=== PATIENT | female | born 1960 | race Caucasian/White ===

== ENCOUNTER 2018-01-09 01:22 | Emergency (ER) | payer SELFPAY ==
[~2018-01-09] VITALS: Ht 157.5 cm; Wt 68.0 kg
[~2018-01-09 01:22] MED LIST: Albuterol inhaler; IBUP-2030 PO; LEVO500T2 PO
[2018-01-09] MEDS ORDERED: IPRATROPIUM BROMIDE (0.02%) 0.5MG/2.5ML NEB HHN STA (02:01)
[2018-01-09] MEDS ORDERED: ALBUTEROL (0.083%) 2.5MG/3ML NEB HHN STA (02:01)
[2018-01-09] MEDS ORDERED: METHYLPREDNISOLONE SOD SUCC 125 MG/2 ML VIAL IV STA (02:01)
[2018-01-09 05:14] VITALS: BP 158/93
== END 2018-01-09 05:43 | disposition home or self-care (01) ==
LOC: ER 01:22
DX: J45.901 Unspecified asthma with (acute) exacerbation (principal); I10 Essential (primary) hypertension; E11.9 Type 2 diabetes mellitus without complications
CPT/HCPCS: 71045; 96374; 99284; J2930

== ENCOUNTER 2018-01-09 05:27 | Emergency (ER) | payer SELFPAY ==
[~2018-01-09] VITALS: Ht 154.9 cm; Wt 82.0 kg
[2018-01-09] MEDS ORDERED: KETOROLAC 60MG/2ML VIAL IM ONE (07:15)
[2018-01-09] MEDS ORDERED: CLONIDINE 0.2MG TABLET PO ONE (07:15)
[2018-01-09] MEDS ORDERED: IPRATROPIUM/ALBUTEROL 0.5-3(2.5)MG/3ML NEB HHN ONE (07:15)
[2018-01-09 08:13] LABS: CHLORIDE 105 mEq/L (98-107); HEMATOCRIT. 39.2 % (36.0-48.0); HEMOGLOBIN. 13.3 g/dL (12.0-16.0); MEAN CORPUSCULAR HEMOGLOBIN 29.8 pg (28.0-32.0); MEAN PLATELET VOLUME 9.8 fl (7.4-10.4); PLATELET 238 x1000/uL (130-400); RED BLOOD CELL COUNT 4.45 mill/uL (4.2-5.4); RED CELL DISTRIBUTION WIDTH 13.9 % (11.6-14.6)
[2018-01-09 09:20] LABS: PLATELET ESTIMATE NORMAL
[2018-01-09 12:15] VITALS: BP 101/63
== END 2018-01-09 13:27 | disposition home or self-care (01) ==
LOC: ER 05:51
DX: J45.901 Unspecified asthma with (acute) exacerbation (principal); R07.81 Pleurodynia; E78.00 Pure hypercholesterolemia, unspecified; I10 Essential (primary) hypertension; E11.9 Type 2 diabetes mellitus without complications
CPT/HCPCS: 36415; 80053; 84484; 85025; 93005; 96372; 99285; J1885; Z7610

== ENCOUNTER 2019-08-28 08:47 | Inpatient (IN) | payer OTHER, MEDICAID ==
[~2019-08-28] VITALS: Ht 154.9 cm; Wt 86.2 kg
[2019-08-28] MEDS ORDERED: SODIUM CHLORIDE 0.9% 1,000 ML IV ONE (09:12)
[2019-08-28] MEDS ORDERED: NITROGLYCERIN 0.4MG TABLET SL SL PRN (09:15)
[2019-08-28] MEDS ORDERED: ASPIRIN 81MG TABLET PO ONE (09:15)
[2019-08-28 09:45] LABS: BASOPHILS % 0.8 % (0.0-2.0); EOSINOPHILS % 2.6 % (0.0-5.0); HEMATOCRIT. 38.6 % (36.0-48.0); LYMPHOCYTES % 25.5 % (20.0-50.0); MEAN CORPUSCULAR HEMOGLOBIN 29.4 pg (28.0-32.0); MEAN CORPUSCULAR VOLUME 87.3 fL (81.0-99.0); MEAN PLATELET VOLUME 9.1 fl (7.4-10.4); MONOCYTES % 9.9 % (2.0-8.0); NEUTROPHILS % 61.2 % (40.0-76.0); PLATELET 274 x1000/uL (130-400); RED BLOOD CELL COUNT 4.42 mill/uL (4.2-5.4)
[2019-08-28 09:46] LABS: CHLORIDE 107 mEq/L (98-107)
[2019-08-28 12:00] VITALS: BP 152/75
[2019-08-28] MEDS ORDERED: AMLO2.5T45 PO (12:00)
[2019-08-28] MEDS ORDERED: GABA-529 PO (12:00)
[2019-08-28] MEDS ORDERED: SERT20OR6 PO (12:00)
[2019-08-28] MEDS ORDERED: METF-414 PO (12:00)
[2019-08-28] MEDS ORDERED: ASPI-1393 PO (12:00)
[2019-08-28] MEDS ORDERED: MONT4TAB11 MT (12:00)
[2019-08-28] MEDS ORDERED: DIPHENHYDRAMINE 50MG/ML VIAL IV PRN (14:15)
[2019-08-28] MEDS ORDERED: MAGNESIUM/ALUMINUM HYDROXIDE/SIMETHICONE 30ML UDC PO PRN (14:15)
[2019-08-28] MEDS ORDERED: CLONIDINE 0.1MG TABLET PO PRN (14:15)
[2019-08-28] MEDS ORDERED: ONDANSETRON HCL 4MG/2ML INJ IV PRN (14:15)
[2019-08-28] MEDS ORDERED: GUAIFENESIN 200MG/10ML SUGAR FREE UDC PO PRN (14:15)
[2019-08-28] MEDS ORDERED: HYDRALAZINE 20MG/ML VIAL IV PRN (14:15)
[2019-08-28] MEDS ORDERED: DEXTROSE 50% WATER 50ML SYRINGE IV PRN (14:15)
[2019-08-28] MEDS ORDERED: MORPHINE SULFATE 2 MG/ML CPJ (NOT FOR IM USE) IV PRN (14:15)
[2019-08-28] MEDS ORDERED: IPRATROPIUM/ALBUTEROL 0.5-3(2.5)MG/3ML NEB HHN PRN (14:15)
[2019-08-28] MEDS ORDERED: ACETAMINOPHEN 325MG TABLET PO PRN (14:15)
[2019-08-28] MEDS ORDERED: NA PHOS,M-B/NA PHOS,DI-BA ENEMA 118ML PR PRN (14:15)
[2019-08-28] MEDS ORDERED: LORAZEPAM 2MG/ML CPJ IV PRN (14:15)
[2019-08-28] MEDS ORDERED: DOCUSATE SODIUM 100MG CAPSULE PO PRN (14:15)
[2019-08-28 16:12] VITALS: BP 143/73
[2019-08-28] MEDS: ENOXAPARIN 40MG/0.4ML SYR SUBCUT SCH (17:40)
[2019-08-28] MEDS: BLOOD SUGAR DIAGNOSTIC STRIP TEST SCH ×2 (17:40→20:28)
[2019-08-28] MEDS: INSULIN LISPRO 100 UNITS/ML SUBCUT SCH ×2 (17:41→20:48)
[2019-08-28] MEDS: HYDROCODONE/ACETAMINOPHEN 10/325MG TABLET PO PRN (18:29)
[2019-08-28] MEDS ORDERED: MIRT15TA6 MT (19:31)
[2019-08-28] MEDS ORDERED: ATOR10TA69 MT (19:31)
[2019-08-28 20:00] VITALS: BP 128/67
[2019-08-28] MEDS: SODIUM CHLORIDE 0.9% INJ 3ML FLUSH IVF SCH (22:17)
[2019-08-29] VITALS: BP 133/65
[2019-08-29 00:30] LABS: CREATINE KINASE 62 IU/L (26-192)
[2019-08-29 00:32] LABS: CREATINE KINASE MB FRACTION < 1.0 ng/mL (0.5-3.6)
[2019-08-29 04:00] VITALS: BP 152/81
[2019-08-29] MEDS: BLOOD SUGAR DIAGNOSTIC STRIP TEST SCH ×4 (05:45→20:48)
[2019-08-29] MEDS: SODIUM CHLORIDE 0.9% INJ 3ML FLUSH IVF SCH ×3 (05:47→21:15)
[2019-08-29] MEDS: INSULIN LISPRO 100 UNITS/ML SUBCUT SCH ×4 (05:47→21:00)
[2019-08-29] MEDS: HYDROCODONE/ACETAMINOPHEN 10/325MG TABLET PO PRN ×2 (05:47→11:14)
[2019-08-29 06:40] LABS: CHLORIDE 110 mEq/L (98-107)
[2019-08-29 06:42] LABS: BASOPHILS % 0.9 % (0.0-2.0); EOSINOPHILS % 3.5 % (0.0-5.0); HEMATOCRIT. 36.8 % (36.0-48.0); HEMOGLOBIN. 12.2 g/dL (12.0-16.0); LYMPHOCYTES % 40.4 % (20.0-50.0); MEAN CORPUSCULAR VOLUME 87.8 fL (81.0-99.0); MONOCYTES % 11.7 % (2.0-8.0); NEUTROPHILS % 43.5 % (40.0-76.0); PLATELET 267 x1000/uL (130-400)
[2019-08-29 06:53] LABS: CREATINE KINASE MB FRACTION < 1.0 ng/mL (0.5-3.6); HDL CHOLESTEROL 57 mg/dL (40-59)
[2019-08-29 06:54] LABS: T4 FREE 0.88 ng/dL (0.76-1.46)
[2019-08-29 06:55] LABS: CREATINE KINASE 55 IU/L (26-192); LDL CHOLESTEROL 111 mg/dL (5-100)
[2019-08-29 08:00] VITALS: BP 126/67
[2019-08-29] MEDS ORDERED: REGADENOSON 0.4 MG/5 ML IV NR (10:45)
[2019-08-29 12:00] VITALS: BP 124/62
[2019-08-29] MEDS ORDERED: IOHEXOL-350 100 ML BOTTLE ONE (15:28)
[2019-08-29 16:00] VITALS: BP 132/67
[2019-08-29 16:19] LABS: CREATINE KINASE 57 IU/L (26-192); CREATINE KINASE MB FRACTION < 1.0 ng/mL (0.5-3.6)
[2019-08-29] MEDS: ENOXAPARIN 40MG/0.4ML SYR SUBCUT SCH (18:14)
[2019-08-29 20:00] VITALS: BP 116/59
[2019-08-30] VITALS: BP 120/65
[2019-08-30] MEDS: HYDROCODONE/ACETAMINOPHEN 10/325MG TABLET PO PRN (02:33)
[2019-08-30 04:00] VITALS: BP 131/67
[2019-08-30] MEDS: BLOOD SUGAR DIAGNOSTIC STRIP TEST SCH (06:01)
[2019-08-30] MEDS: SODIUM CHLORIDE 0.9% INJ 3ML FLUSH IVF SCH (06:18)
[2019-08-30] MEDS: INSULIN LISPRO 100 UNITS/ML SUBCUT SCH (06:19)
[2019-08-30 07:45] LABS: BASOPHILS % 0.9 % (0.0-2.0); EOSINOPHILS % 4.8 % (0.0-5.0); HEMATOCRIT. 37.8 % (36.0-48.0); HEMOGLOBIN. 12.7 g/dL (12.0-16.0); LYMPHOCYTES % 41.5 % (20.0-50.0); MEAN CORPUSCULAR HEMOGLOBIN 29.4 pg (28.0-32.0); MEAN CORPUSCULAR VOLUME 87.3 fL (81.0-99.0); MEAN PLATELET VOLUME 9.1 fl (7.4-10.4); MONOCYTES % 9.6 % (2.0-8.0); NEUTROPHILS % 43.2 % (40.0-76.0); PLATELET 292 x1000/uL (130-400); RED BLOOD CELL COUNT 4.33 mill/uL (4.2-5.4); RED CELL DISTRIBUTION WIDTH 14.1 % (11.6-14.6)
[2019-08-30 07:55] LABS: CHLORIDE 107 mEq/L (98-107)
[2019-08-30 08:10] LABS: CREATINE KINASE 46 IU/L (26-192)
[2019-08-30 08:13] LABS: CREATINE KINASE MB FRACTION < 1.0 ng/mL (0.5-3.6)
[2019-08-30] MEDS ORDERED: ASPIRIN 81MG TABLET PO SCH (09:00)
[2019-08-30 09:51] VITALS: BP 134/61
== END 2019-08-30 10:28 | disposition home or self-care (01) | DRG 203 ==
LOC: ER 08:47 → 8WST 10:36 → ENRESERV 10:43
PROVIDERS: ADMIT Internal Medicine; ATTEND Internal Medicine
DX: M94.0 Chondrocostal junction syndrome [Tietze] (principal); E11.9 Type 2 diabetes mellitus without complications; E78.5 Hyperlipidemia, unspecified; I10 Essential (primary) hypertension; Z79.84 Long term (current) use of oral hypoglycemic drugs; Z79.899 Other long term (current) drug therapy; Z86.73 Personal history of transient ischemic attack (TIA), and cerebral infarction without residual deficits; Z79.82 Long term (current) use of aspirin
CPT/HCPCS: 36415; 71045; 71275; 80048; 80061; 82550; 82553; 82962; 83036; 83880; 84439; 84443; 84484; 85379; 93005; 93306; 93970; 96374; 99285; A9500; J1650; J1815; J2270; J7030; Q9967

== ENCOUNTER 2019-10-10 10:03 | Emergency (ER) | payer MEDICAID, OTHER ==
[~2019-10-10] VITALS: Ht 165.1 cm; Wt 72.0 kg
[~2019-10-10 10:03] MED LIST changes: +AMLO2.5T45 PO; +ASPI-1393 PO; +ATOR10TA69 MT; +GABA-529 PO; -LEVO500T2 PO; +METF-414 PO; +MIRT15TA6 MT; +MONT4TAB11 MT; +SERT20OR6 PO
[2019-10-10 10:06] VITALS: BP 148/73
== END 2019-10-10 11:09 | disposition left against medical advice (07) ==
LOC: ER 10:17
DX: R06.02 Shortness of breath (principal); Z53.21 Procedure and treatment not carried out due to patient leaving prior to being seen by health care provider